=== PATIENT | female | born 1990 | race Caucasian/White ===

== ENCOUNTER 2025-01-02 03:56 | Emergency (ER) | payer BC, OTHER ==
[~2025-01-02] VITALS: Ht 162.6 cm; Wt 54.4 kg
[2025-01-02 04:50] LABS: BASOPHILS # (AUTO) 0.1 K/uL (0.0-0.2); BASOPHILS % (AUTO) 0.7 % (0.0-2.0); EOSINOPHILS # (AUTO) 0.1 K/uL (0.0-0.7); EOSINOPHILS % (AUTO) 0.8 % (0.0-6.0); HEMATOCRIT 36 % (33-45); HEMOGLOBIN 11.9 g/dL (11.5-14.8); LYMPHOCYTES # (AUTO) 1.5 K/uL (0.8-4.8); LYMPHOCYTES % (AUTO) 17.8 % (20.0-44.0); MEAN CORPUSCULAR HEMOGLOBIN 31 PG (26.0-33.0); MEAN CORPUSCULAR HGB CONC 33 g/dl (31.0-36.0); MEAN CORPUSCULAR VOLUME 93 fL (82-100); MONOCYTES # (AUTO) 0.6 K/uL (0.1-1.30); MONOCYTES % (AUTO) 6.9 % (2.0-12.0); NEUTROPHILS # (AUTO) 6.1 K/uL (1.8-8.9); NEUTROPHILS % (AUTO) 73.8 % (43.0-81.0); PLATELET COUNT (AUTO) 229 K/uL (150-450); RED BLOOD CELL COUNT(AUTO) 3.84 MIL/uL (4.0-5.2); RED CELL DISTRIBUTION WIDTH 13.1 % (11.5-15.0); WHITE BLOOD COUNT (AUTO) 8.3 K/uL (4.3-11.0)
[2025-01-02 04:59] LABS: APPEARANCE,URINE CLEAR (CLEAR); BILIRUBIN,URINE 2+ (NEGATIVE); BLOOD, URINE NEGATIVE Ery/uL (NEGATIVE); COLOR,URINE YELLOW (YELLOW); KETONES,URINE 2+ mg/dL (NEGATIVE); LEUKOCYTE ESTERASE ,URINE NEGATIVE (NEGATIVE); NITRITE, URINE NEGATIVE (NEGATIVE); PROTEIN,URINE 2+ mg/dl (NEGATIVE); UGLUCOSE NEGATIVE (NEGATIVE)
[2025-01-02 05:00] LABS: ADD URINE CULTURE NO; BACTERIA,URINE Rare /HPF (None Seen); PREGNANCY TEST URINE QUAL NEGATIVE (NEGATIVE); RBC,URINE 0-2 /HPF (0-2); SQUAMOUS EPITHELIAL CELL,UR Few /HPF (None Seen); WBC,URINE 0-2 /HPF (0-3)
[2025-01-02 05:24] LABS: CALCIUM, SERUM 8.5 mg/dL (8.5-10.1); CARBON DIOXIDE 18 mmol/L (21-32); CHLORIDE 100 mmol/L (98-107); CREATININE 0.7 mg/dL (0.6-1.3); GLUCOSE 111 mg/dL (74-106); POTASSIUM 3.1 mmol/L (3.5-5.1); SODIUM SERUM 133 mmol/L (136-145); UREA NITROGEN, BLOOD 17 mg/dL (7-18)
[2025-01-02 05:30] LABS: ALANINE AMINOTRANSFERASE 34 U/L (12-78); ALBUMIN 4.2 g/dL (3.4-5.0); ALCOHOL, BLOOD < 3 mg/dL (0-10); ALKALINE PHOSPHATASE 56 U/L (46-116); ASPARTATE AMINOTRANSFERASE 55 U/L (15-37); BILIRUBIN,TOTAL 1.4 mg/dL (0.2-1.0); TOTAL PROTEIN, SERUM 7.3 g/dL (6.4-8.2)
[2025-01-02 05:31] LABS: ACETAMINOPHEN <10 ug/ml (10-30); SALICYLATE 1.8 mg/dL (2.8-20.0)
[2025-01-02 05:32] LABS: BILIRUBIN,DIRECT 0.1 mg/dL (0.0-0.2)
[2025-01-02 05:42] LABS: AMPHETAMINE, URINE NEGATIVE (NEGATIVE); BARBITURATE, URINE NEGATIVE (NEGATIVE); COCCAINE, URINE NEGATIVE (NEGATIVE); OPIATE, URINE NEGATIVE (NEGATIVE); PHENCYCLIDINE SCREEN,URINE NEGATIVE (NEGATIVE)
[2025-01-02 05:46] LABS: BENZODIAZEPINE, URINE POSITIVE (NEGATIVE); CANNABINOID, URINE POSITIVE (NEGATIVE)
[2025-01-02] MEDS ORDERED: OLANZAPINE 10 MG VIAL IM ONE (10:16)
[2025-01-02] MEDS ORDERED: LORAZEPAM INJ 2 MG/ML VIAL ONE (10:17)
[2025-01-02] MEDS: OLANZAPINE 10 MG VIAL IM ONE (10:24)
[2025-01-02] MEDS: LORAZEPAM INJ 2 MG/ML VIAL IM ONE (10:25)
[2025-01-03] MEDS: LORAZEPAM 0.5 MG TABLET PO ONE (16:00)
[2025-01-03] MEDS: HYDROCHLOROTHIAZIDE 25 MG TABLET PO ONE (16:00)
[2025-01-03] MEDS ORDERED: HYDROCHLOROTHIAZIDE 25 MG TABLET ONE (17:08)
[2025-01-03] MEDS ORDERED: LORAZEPAM 0.5 MG TABLET ONE (17:08)
[2025-01-23 09:54] VITALS: BP 141/97; TEMP 97.8; O2SAT 99
== END 2025-01-03 14:30 ==
LOC: ER 03:58
DX: R46.1 Bizarre personal appearance (principal); Z20.822 Contact with and (suspected) exposure to COVID-19
CPT/HCPCS: 99285; 96372 ×2; 85025; 80048; 80076; 84703; 81001; 36415; 84702; 87426; 80143; 80320; 80307; J2060; J3490; G0480

== ENCOUNTER 2025-01-28 02:04 | Emergency (ER) | payer BC ==
[~2025-01-28] VITALS: Ht 154.9 cm; Wt 55.3 kg
[2025-01-28 02:11] VITALS: BP 128/79; TEMP 98.2; O2SAT 99
== END 2025-01-28 02:37 | disposition left against medical advice (07) ==
LOC: ER 02:06
DX: R46.89 Other symptoms and signs involving appearance and behavior (principal); Z53.21 Procedure and treatment not carried out due to patient leaving prior to being seen by health care provider

== ENCOUNTER 2025-02-11 20:39 | Emergency (ER) | payer BC, MEDICAID ==
[~2025-02-11] VITALS: Ht 154.9 cm; Wt 61.2 kg
[2025-02-11 21:33] LABS: BASOPHILS % (AUTO) 0.4 % (0.0-2.0); EOSINOPHILS # (AUTO) 0.1 K/uL (0.0-0.7); EOSINOPHILS % (AUTO) 1.3 % (0.0-6.0); HEMATOCRIT 36 % (33-45); HEMOGLOBIN 12.7 g/dL (11.5-14.8); LYMPHOCYTES # (AUTO) 1.8 K/uL (0.8-4.8); LYMPHOCYTES % (AUTO) 20.1 % (20.0-44.0); MEAN CORPUSCULAR HEMOGLOBIN 32 PG (26.0-33.0); MEAN CORPUSCULAR HGB CONC 35 g/dl (31.0-36.0); MEAN CORPUSCULAR VOLUME 91 fL (82-100); MONOCYTES # (AUTO) 0.5 K/uL (0.1-1.30); MONOCYTES % (AUTO) 5.1 % (2.0-12.0); NEUTROPHILS # (AUTO) 6.4 K/uL (1.8-8.9); NEUTROPHILS % (AUTO) 73.1 % (43.0-81.0); PLATELET COUNT (AUTO) 272 K/uL (150-450); RED BLOOD CELL COUNT(AUTO) 3.97 MIL/uL (4.0-5.2); RED CELL DISTRIBUTION WIDTH 14.2 % (11.5-15.0); WHITE BLOOD COUNT (AUTO) 8.8 K/uL (4.3-11.0)
[2025-02-11 21:41] LABS: CALCIUM, SERUM 9.2 mg/dL (8.5-10.1); CARBON DIOXIDE 29 mmol/L (21-32); CHLORIDE 102 mmol/L (98-107); CREATININE 0.7 mg/dL (0.6-1.3); GLUCOSE 95 mg/dL (74-106); POTASSIUM 3.4 mmol/L (3.5-5.1); SODIUM SERUM 138 mmol/L (136-145); UREA NITROGEN, BLOOD 12 mg/dL (7-18)
[2025-02-11 21:46] LABS: ALANINE AMINOTRANSFERASE 31 U/L (12-78); ALBUMIN 4.2 g/dL (3.4-5.0); ALKALINE PHOSPHATASE 67 U/L (46-116); ASPARTATE AMINOTRANSFERASE 20 U/L (15-37); BILIRUBIN,DIRECT 0.1 mg/dL (0.0-0.2); BILIRUBIN,TOTAL 0.3 mg/dL (0.2-1.0); TOTAL PROTEIN, SERUM 7.3 g/dL (6.4-8.2)
[2025-02-11 21:47] LABS: ACETAMINOPHEN 0 ug/ml (10-30); ALCOHOL, BLOOD < 3 mg/dL (0-10); SALICYLATE 0.7 mg/dL (2.8-20.0)
[2025-02-11] MEDS ORDERED: OLANZAPINE 5 MG TABLET ONE (22:25)
[2025-02-11] MEDS: OLANZAPINE 5 MG TABLET PO ONE (22:30)
[2025-02-11 23:56] VITALS: BP 134/80; TEMP 97.9; O2SAT 99
[2025-02-12 16:29] LABS: HIV-1 p24 ANTIGEN NON REACTIVE (NONREACTIVE); HIV-1/2 ANTIBODY NON REACTIVE (NONREACTIVE)
[2025-02-13 07:09] LABS: RAPID PLASMA REAGIN QUAL. Non Reactive (Non Reactive)
[2025-02-14 18:09] LABS: *HSV 1 DNA PCR Negative (Negative); *HSV 2 DNA PCR Negative (Negative)
== END 2025-02-11 23:57 | disposition home or self-care (01) ==
LOC: ER 20:39
DX: F29 Unspecified psychosis not due to a substance or known physiological condition (principal); F41.9 Anxiety disorder, unspecified; Z91.048 Other nonmedicinal substance allergy status
CPT/HCPCS: 36415; 80048-TC; 80076-TC; 85025-TC; 86592; 86593; 87806; G0480

== ENCOUNTER 2025-03-12 12:21 | Emergency (ER) | payer MEDICAID ==
[~2025-03-12] VITALS: Ht 157.5 cm; Wt 63.5 kg
[2025-03-12 15:50] VITALS: BP 140/88; TEMP 98.7; O2SAT 95
== END 2025-03-12 15:51 | disposition home or self-care (01) ==
LOC: ER 12:25
DX: F41.1 Generalized anxiety disorder (principal); R06.02 Shortness of breath; I10 Essential (primary) hypertension
CPT/HCPCS: 71045-TC

== ENCOUNTER 2025-03-19 13:43 | Emergency (ER) | payer MEDICAID ==
[~2025-03-19] VITALS: Ht 157.5 cm; Wt 63.5 kg
[2025-03-19 14:18] LABS: BASOPHILS % (AUTO) 0.6 % (0.0-2.0); EOSINOPHILS # (AUTO) 0.1 K/uL (0.0-0.7); HEMATOCRIT 37 % (33-45); HEMOGLOBIN 12.4 g/dL (11.5-14.8); LYMPHOCYTES # (AUTO) 2.1 K/uL (0.8-4.8); MEAN CORPUSCULAR HEMOGLOBIN 31 PG (26.0-33.0); MEAN CORPUSCULAR HGB CONC 34 g/dl (31.0-36.0); MEAN CORPUSCULAR VOLUME 92 fL (82-100); MONOCYTES # (AUTO) 0.4 K/uL (0.1-1.30); MONOCYTES % (AUTO) 5.2 % (2.0-12.0); NEUTROPHILS # (AUTO) 5.1 K/uL (1.8-8.9); NEUTROPHILS % (AUTO) 66.2 % (43.0-81.0); PLATELET COUNT (AUTO) 284 K/uL (150-450); RED BLOOD CELL COUNT(AUTO) 3.98 MIL/uL (4.0-5.2); RED CELL DISTRIBUTION WIDTH 13.6 % (11.5-15.0); WHITE BLOOD COUNT (AUTO) 7.8 K/uL (4.3-11.0)
[2025-03-19 14:25] LABS: CALCIUM, SERUM 9.1 mg/dL (8.5-10.1); CARBON DIOXIDE 24 mmol/L (21-32); CHLORIDE 105 mmol/L (98-107); CREATININE 0.8 mg/dL (0.6-1.3); GLUCOSE 93 mg/dL (74-106); POTASSIUM 3.6 mmol/L (3.5-5.1); SODIUM SERUM 139 mmol/L (136-145); UREA NITROGEN, BLOOD 12 mg/dL (7-18)
[2025-03-19 14:30] LABS: ACETAMINOPHEN <10 ug/ml (10-30); ALANINE AMINOTRANSFERASE 20 U/L (12-78); ALBUMIN 4.1 g/dL (3.4-5.0); ALCOHOL, BLOOD < 3 mg/dL (0-10); ALKALINE PHOSPHATASE 53 U/L (46-116); ASPARTATE AMINOTRANSFERASE 17 U/L (15-37); BILIRUBIN,DIRECT 0.2 mg/dL (0.0-0.2); BILIRUBIN,TOTAL 0.7 mg/dL (0.2-1.0); SALICYLATE 0.8 mg/dL (2.8-20.0); TOTAL PROTEIN, SERUM 7.3 g/dL (6.4-8.2)
[2025-03-19 15:30] VITALS: BP 128/79; TEMP 98.4; O2SAT 99
[2025-03-19 15:36] LABS: APPEARANCE,URINE CLEAR (CLEAR); BILIRUBIN,URINE Negative (NEGATIVE); BLOOD, URINE Negative Ery/uL (NEGATIVE); COLOR,URINE YELLOW (YELLOW); KETONES,URINE 15 mg/dL (NEGATIVE); LEUKOCYTE ESTERASE ,URINE Negative (NEGATIVE); PROTEIN,URINE 30 mg/dl (NEGATIVE); UGLUCOSE Negative (NEGATIVE); UROBILINOGEN,URINE 0.2 EU/dL (0.2)
[2025-03-19 15:37] LABS: NITRITE, URINE NEGATIVE (NEGATIVE)
[2025-03-19 15:40] LABS: ADD URINE CULTURE NO; BACTERIA,URINE Few /HPF (None Seen); PREGNANCY TEST URINE QUAL NEGATIVE (NEGATIVE); RBC,URINE 0-2 /HPF (0-2); SQUAMOUS EPITHELIAL CELL,UR Few /HPF (None Seen); WBC,URINE 0-2 /HPF (0-3)
[2025-03-19 15:53] LABS: AMPHETAMINE, URINE NEGATIVE (NEGATIVE); BARBITURATE, URINE NEGATIVE (NEGATIVE); BENZODIAZEPINE, URINE NEGATIVE (NEGATIVE); COCCAINE, URINE NEGATIVE (NEGATIVE); OPIATE, URINE NEGATIVE (NEGATIVE); PHENCYCLIDINE SCREEN,URINE NEGATIVE (NEGATIVE)
[2025-03-19 15:54] LABS: CANNABINOID, URINE POSITIVE (NEGATIVE)
== END 2025-03-19 17:25 | disposition left against medical advice (07) ==
LOC: ER 13:45
DX: R46.1 Bizarre personal appearance (principal); I10 Essential (primary) hypertension; Z79.899 Other long term (current) drug therapy; Z20.822 Contact with and (suspected) exposure to COVID-19
CPT/HCPCS: 36415; 80048-TC; 80076-TC; 81001; 84703-TC; 85025-TC; G0480

== ENCOUNTER 2025-06-12 20:38 | Emergency (ER) | payer BC, MEDICAID ==
[~2025-06-12] VITALS: Ht 152.4 cm; Wt 52.2 kg
[2025-06-13 00:23] LABS: PLATELET COUNT (AUTO) 256 K/uL (150-450); RED BLOOD CELL COUNT(AUTO) 3.88 MIL/uL (4.0-5.2); RED CELL DISTRIBUTION WIDTH 13.4 % (11.5-15.0); WHITE BLOOD COUNT (AUTO) 5.6 K/uL (4.3-11.0)
[2025-06-13 00:35] LABS: CALCIUM, SERUM 8.6 mg/dL (8.5-10.1); CREATININE 0.6 mg/dL (0.6-1.3); SODIUM SERUM 136 mmol/L (136-145); UREA NITROGEN, BLOOD 17 mg/dL (7-18)
[2025-06-13 00:44] LABS: ALCOHOL, BLOOD < 3 mg/dL (0-10); ASPARTATE AMINOTRANSFERASE 15 U/L (15-37); TOTAL PROTEIN, SERUM 6.6 g/dL (6.4-8.2)
[2025-06-13 06:37] LABS: APPEARANCE,URINE CLOUDY (CLEAR); BLOOD, URINE NEGATIVE Ery/uL (NEGATIVE); LEUKOCYTE ESTERASE ,URINE 1+ (NEGATIVE); NITRITE, URINE NEGATIVE (NEGATIVE); UGLUCOSE NEGATIVE (NEGATIVE)
[2025-06-13 06:41] LABS: PREGNANCY TEST URINE QUAL NEGATIVE (NEGATIVE)
[2025-06-13 06:48] LABS: ADD URINE CULTURE YES; SQUAMOUS EPITHELIAL CELL,UR Many /HPF (None Seen)
[2025-06-13 06:50] LABS: BARBITURATE, URINE NEGATIVE (NEGATIVE); BENZODIAZEPINE, URINE NEGATIVE (NEGATIVE); COCCAINE, URINE NEGATIVE (NEGATIVE); OPIATE, URINE NEGATIVE (NEGATIVE)
[2025-06-13 06:55] LABS: AMPHETAMINE, URINE POSITIVE (NEGATIVE); CANNABINOID, URINE POSITIVE (NEGATIVE)
[2025-06-13 09:00] VITALS: BP 123/84; TEMP 98.7; O2SAT 98
[2025-06-13] MEDS ORDERED: IBUPROFEN 600 MG TABLET ONE (10:08)
[2025-06-13] MEDS ORDERED: POLYETHYLENE GLYCOL 3350 17 GM POWD.PACK ONE (10:08)
[2025-06-13] MEDS: POLYETHYLENE GLYCOL 3350 17 GM POWD.PACK PO ONE (10:12)
[2025-06-13] MEDS: IBUPROFEN 600 MG TABLET PO ONE (10:12)
[2025-06-13] MEDS ORDERED: NITROFURANTOIN/MONOHYDRATE MACROCRYSTALS 100 MG CAPSULE ONE (10:13)
[2025-06-13] MEDS: NITROFURANTOIN/MONOHYDRATE MACROCRYSTALS 100 MG CAPSULE PO ONE (10:14)
== END 2025-06-13 10:55 | disposition left against medical advice (07) ==
LOC: ER 20:51
DX: F32.A Depression, unspecified (principal); R51.9 Headache, unspecified; I10 Essential (primary) hypertension; F19.10 Other psychoactive substance abuse, uncomplicated; Z20.822 Contact with and (suspected) exposure to COVID-19; Z79.899 Other long term (current) drug therapy; Z59.00 Homelessness unspecified
CPT/HCPCS: 36415; 80048-TC; 80076-TC; 81001; 84703-TC; 85025-TC; G0480

== ENCOUNTER 2025-07-17 19:07 | Emergency (ER) | payer MEDICAID ==
[~2025-07-17] VITALS: Ht 162.6 cm; Wt 61.2 kg
[2025-07-17 19:30] VITALS: BP 136/85; TEMP 98.9; O2SAT 99
== END 2025-07-17 20:33 | disposition left against medical advice (07) ==
LOC: ER 19:11
DX: K08.89 Other specified disorders of teeth and supporting structures (principal); I10 Essential (primary) hypertension; Z86.59 Personal history of other mental and behavioral disorders; Z53.21 Procedure and treatment not carried out due to patient leaving prior to being seen by health care provider

== ENCOUNTER 2025-07-21 14:09 | Emergency (ER) | payer MEDICAID ==
[~2025-07-21] VITALS: Ht 154.9 cm; Wt 56.7 kg
[2025-07-21] MEDS ORDERED: CEFTRIAXONE 500 MG VIAL ONE (15:10)
[2025-07-21] MEDS ORDERED: LIDOCAINE /MPF 1% VIAL 5 ML VIAL ONE (15:10)
[2025-07-21] MEDS ORDERED: DOXYCYCLINE HYCLATE (100 MG) 100 MG TABLET ONE (15:10)
[2025-07-21] MEDS: CEFTRIAXONE 1 G VIAL IM ONE (15:29)
[2025-07-21] MEDS: DOXYCYCLINE HYCLATE (100 MG) 100 MG TABLET PO ONE (15:29)
[2025-07-21] MEDS: VALACYCLOVIR HCL 500 MG TABLET PO ONE (15:29)
[2025-07-21 16:45] LABS: APPEARANCE,URINE CLEAR (CLEAR); BLOOD, URINE NEGATIVE Ery/uL (NEGATIVE); LEUKOCYTE ESTERASE ,URINE NEGATIVE (NEGATIVE); NITRITE, URINE NEGATIVE (NEGATIVE); UGLUCOSE NEGATIVE (NEGATIVE)
[2025-07-21 16:58] LABS: ADD URINE CULTURE NO
[2025-07-21] MEDS ORDERED: VALA10002 PO (17:17)
[2025-07-21] MEDS ORDERED: DOXY-326 PO (17:17)
[2025-07-21 17:28] VITALS: BP 140/87; TEMP 98; O2SAT 98
[2025-07-21 21:26] LABS: HIV-1/2 ANTIBODY NON REACTIVE (NONREACTIVE)
[2025-07-23 04:07] LABS: RAPID PLASMA REAGIN QUAL. Non Reactive (Non Reactive)
[2025-07-23 12:07] LABS: CHLAMYDIA TRACHOMATIS NAA Negative (Negative); NEISSERIA GONORRHOEAE NAA Negative (Negative)
== END 2025-07-21 17:28 | disposition home or self-care (01) ==
LOC: ER 14:17
DX: Z11.3 Encounter for screening for infections with a predominantly sexual mode of transmission (principal); I10 Essential (primary) hypertension; R35.0 Frequency of micturition; R30.9 Painful micturition, unspecified; F32.A Depression, unspecified; F41.9 Anxiety disorder, unspecified; F19.10 Other psychoactive substance abuse, uncomplicated
CPT/HCPCS: 99283; 86593; 86592; 96372; 81001; 36415; 87806; 87491; 87591; J0696; J3490

== ENCOUNTER 2025-07-31 18:27 | Emergency (ER) | payer MEDICAID ==
[~2025-07-31] VITALS: Ht 165.1 cm; Wt 68.0 kg
[~2025-07-31 18:27] MED LIST: DOXY-326 PO; VALA10002 PO
[2025-07-31 20:12] VITALS: TEMP 98.3
[2025-07-31 20:41] LABS: APPEARANCE,URINE CLEAR (CLEAR)
[2025-07-31 20:42] LABS: BLOOD, URINE TRACE-INTA Ery/uL (NEGATIVE); LEUKOCYTE ESTERASE ,URINE NEGATIVE (NEGATIVE); NITRITE, URINE NEGATIVE (NEGATIVE); UGLUCOSE NEGATIVE (NEGATIVE)
[2025-07-31 20:43] LABS: PREGNANCY TEST URINE QUAL NEGATIVE (NEGATIVE)
[2025-07-31 20:56] LABS: SQUAMOUS EPITHELIAL CELL,UR Moderate /HPF (None Seen)
[2025-07-31 20:57] LABS: ADD URINE CULTURE NO
[2025-07-31] MEDS ORDERED: HYDR12.55 PO (21:10)
[2025-07-31 21:29] VITALS: BP 135/85; O2SAT 100
== END 2025-07-31 21:27 | disposition home or self-care (01) ==
LOC: ER 18:36
DX: R35.0 Frequency of micturition (principal); A54.9 Gonococcal infection, unspecified; I10 Essential (primary) hypertension; Z79.899 Other long term (current) drug therapy
CPT/HCPCS: 81001; 84703-TC

== ENCOUNTER 2025-08-09 18:05 | Emergency (ER) | payer MEDICAID ==
[~2025-08-09] VITALS: Ht 154.9 cm; Wt 56.7 kg
[~2025-08-09 18:05] MED LIST changes: +HYDR12.55 PO
[2025-08-09 18:16] VITALS: BP 134/108; TEMP 98.6; O2SAT 98
== END 2025-08-09 19:12 | disposition home or self-care (01) ==
LOC: ER 18:08
DX: R50.9 Fever, unspecified (principal); K08.89 Other specified disorders of teeth and supporting structures; Z53.21 Procedure and treatment not carried out due to patient leaving prior to being seen by health care provider